=== PATIENT | female | born 1955 | race Caucasian/White ===

== ENCOUNTER 2016-06-22 06:16 | Observation (INO) | payer OTHER ==
[~2016-06-22] VITALS: Ht 149.9 cm; Wt 62.0 kg
[2016-06-22] VITALS (7 sets, daily range): BP systolic 101–121; BP diastolic 48–57; PULSE 40–64; RESP 15–20; TEMP 97.5–97.6; O2SAT 97–100
[~2016-06-22 06:16] MED LIST: CITA40 PO; HYDR50TA5 PO; LEVO200T31 PO; LEVO75TA3 PO; LORA0.5T PO; PROT40TA PO; ROPI2 PO
[2016-06-22] MEDS ORDERED: SODIUM CHLOR 0.9% 1000 ML INJ 1,000 ML IV SCH (08:24)
--- NOTE | 2016-06-22 08:29 | PD ---
HPI Chief Complaint: Abdominal Pain Time Seen by Provider: 08:16 Travel History International Travel<30 days: No Contact w/Intl Traveler<30days: No Traveled to known affect area: No History of Present Illness HPI This is a 61-year-old female who has a history gastric bypass in August of last year by Dr. Salinas who presents to the emergency department having had intermittent epigastric discomfort and nausea, culminating yesterday with severe epigastric pain, feeling the need to vomit, going to the bathroom having had an episode of loose stool and then passing out finding herself awaking in the shower. She doesn't remember exactly what happened. This is never happened to her. She says she's not really been able to eat or drink much for several months. She's been struggling with nausea ever since the gastric bypass. She's been following with GI. In January they did not endoscopy and demonstrated ulcerations. She saw Dr. Salinas earlier this week and Dr. Soham Parisi yesterday because her symptoms have been worsening. They were going to initiate her on a PPI and an antacid. PFSH Past Medical History Narrative Medical Hypothyroidism Gastric bypass in August 2015 Cancer: No Cardiovascular Problems: No Diabetes: Yes (pre) Endocrine: Yes Genitourinary: No Hepatitis: No Hiatal Hernia: Yes Immune Disorder: No Musculoskeletal: Yes (scoliosis neck area) Neurologic: No Psychiatric: Yes (anxiety) Reproductive: No Respiratory: Yes (RAD) Thyroid Disease: Yes ?: Not Past Surgical History Abdominal Surgery: Yes (lap jaqui) AICD: No Joint Replacement: No Pacemaker: No Social History Alcohol Use: No Tobacco Use: Yes Substance Use: No Allergies-Medications (Allergen,Severity, Reaction): Coded Allergies: Codeine (Unverified Allergy, Severe, Itching, 06/22/16) HIVES Reported Meds & Prescriptions Reported Meds & Active Scripts Active Reported Lorazepam 0.5 Mg Tab 0.5 Mg PO HS PRN Hctz (Hydrochlorothiazide) 50 Mg Tab 50 Mg PO DAILY Levothyroxine 75 mcg (Levothyroxine Sodium) 75 Mcg Tab 75 Mcg PO DAILY Protonix (Pantoprazole Sodium) 40 Mg Tab 40 Mg PO DAILY Levoxyl (Levothyroxine Sodium) 200 Mcg Tab 275 Mcg PO DAILY Requip (Ropinirole HCl) 2 Mg Tab 2 Mg PO Q6HR Celexa 40 Mg Tab (Citalopram Hydrobromide) 40 Mg Tab 40 Mg PO DAILY Review of Systems Except as stated in HPI: all other systems reviewed are Neg Physical Exam Narrative GENERAL:Pale SKIN: Warm and dry. HEAD: Atraumatic. Normocephalic. EYES: Pupils equal and round. No injection or drainage. ENT: Dry mucous membranes NECK: Trachea midline. CARDIOVASCULAR: Regular rate and rhythm. No murmur appreciated. RESPIRATORY: Clear to auscultation. Breath sounds equal bilaterally. GASTROINTESTINAL: Abdomen soft, tender to palpation in the epigastrium and right upper quadrant, hyperactive bowel sounds in the epigastrium, hypoactive bowel sounds in the lower abdomen. MUSCULOSKELETAL: No obvious deformities. NEUROLOGICAL: Awake and alert. No obvious cranial nerve deficits. Moving all extremities. PSYCHIATRIC: Appropriate mood and affect; insight and judgment normal. Data Data Last Documented VS Vital Signs Date Time Temp Pulse Resp B/P Pulse Ox O2 Delivery O2 Flow Rate FiO2 06/22/16 08:31 56 16 110/54 98 Room Air 06/22/16 06:18 97.6 Orders Complete Blood Count With Diff (06/22/16 08:24) Comprehensive Metabolic Panel (06/22/16 08:24) Lipase (06/22/16 08:24) Prothrombin Time / Inr (Pt) (06/22/16 08:24) Act Partial Throm Time (Ptt) (06/22/16 08:24) Urinalysis - C+S If Indicated (06/22/16 08:24) Iv Access Insert/Monitor (06/22/16 08:24) Ecg Monitoring (06/22/16 08:24) Oximetry (06/22/16 08:24) Sodium Chlor 0.9% 1000 Ml Inj (Ns 1000 M (06/22/16 08:24) Sodium Chloride 0.9% Flush (Ns Flush) (06/22/16 08:30) Electrocardiogram (06/22/16 ) Troponin I (06/22/16 08:29) Admit Order (Ed Use Only) (06/22/16 10:08) Labs Laboratory Tests Test 06/22/16 06/22/16 09:05 09:15 White Blood Count 5.6 TH/MM3 Red Blood Count 4.19 MIL/MM3 Hemoglobin 13.6 GM/DL Hematocrit 38.5 % Mean Corpuscular Volume 92.0 FL Mean Corpuscular Hemoglobin 32.4 PG Mean Corpuscular Hemoglobin 35.3 % Concent Red Cell Distribution Width 12.8 % Platelet Count 183 TH/MM3 Mean Platelet Volume 8.7 FL Neutrophils (%) (Auto) 58.9 % Lymphocytes (%) (Auto) 32.2 % Monocytes (%) (Auto) 5.8 % Eosinophils (%) (Auto) 2.4 % Basophils (%) (Auto) 0.7 % Neutrophils # (Auto) 3.3 TH/MM3 Lymphocytes # (Auto) 1.8 TH/MM3 Monocytes # (Auto) 0.3 TH/MM3 Eosinophils # (Auto) 0.1 TH/MM3 Basophils # (Auto) 0.0 TH/MM3 CBC Comment AUTO DIFF Prothrombin Time 10.9 SEC Prothromb Time International 1.0 RATIO Ratio Activated Partial 24.6 SEC Thromboplast Time Sodium Level 142 MEQ/L Potassium Level 4.0 MEQ/L Chloride Level 107 MEQ/L Carbon Dioxide Level 29.1 MEQ/L Anion Gap 6 MEQ/L Blood Urea Nitrogen 15 MG/DL Creatinine 0.73 MG/DL Estimat Glomerular Filtration 81 ML/MIN Rate Random Glucose 90 MG/DL Calcium Level 8.6 MG/DL Total Bilirubin 0.2 MG/DL Aspartate Amino Transf 36 U/L (AST/SGOT) Alanine Aminotransferase 34 U/L (ALT/SGPT) Alkaline Phosphatase 75 U/L Troponin I LESS THAN 0.02 NG/ML Total Protein 6.4 GM/DL Albumin 3.3 GM/DL Lipase 516 U/L Urine Color YELLOW Urine Turbidity CLEAR Urine pH 6.5 Urine Specific [place] 1.022 Urine Protein TRACE mg/dL Urine Glucose (UA) NEG mg/dL Urine Ketones TRACE mg/dL Urine Occult Blood NEG Urine Nitrite NEG Urine Bilirubin NEG Urine Urobilinogen 4.0 MG/DL Urine Leukocyte Esterase SMALL Urine RBC 1 /hpf Urine WBC 4 /hpf Urine Squamous Epithelial 5 /hpf Cells Urine Mucus FEW /lpf Microscopic Urinalysis Comment CULT NOT INDICATED MDM Medical Decision Making Medical Screen Exam Complete: Yes Emergency Medical Condition: Yes Interpretation(s) Afebrile, no tachycardia, normotensive No leukocytosis Electrolytes are reassuring Lipase is 516 Albumin is slightly low Troponin is normal Urinalysis is negative for infection EKG demonstrated sinus bradycardia with no ST changes Differential Diagnosis Arrhythmia, electrolyte abnormality, dehydration, gastric ulcer, obstruction Narrative Course This is a 61-year-old female who presents to the emergency department with a history gastric bypass with increasing epigastric discomfort over the past week with an episode of syncope last evening in the setting of pain nausea and loose stools. She was placed on a monitor and an IV was established. Labs are obtained which were notable for a mildly elevated lipase and a normal troponin. EKG is bradycardic but sinus rhythm. Patient was given a liter of IV hydration. I spoke to Dr. Salinas who agreed with keeping the patient in observation and consulting GI for likely endoscopy. Patient will be placed in observation under Dr. Gray service. Physician Communication Physician Communication Discussed with Dr. Gray and Dr. Salinas Diagnosis Primary Impression: Syncope Qualified Code: R55 - Syncope, unspecified syncope type Admitting Information Admitting Physician Requests: Observation Shahnaz Calderon MD Jun 22, 2016 08:29
[2016-06-22] MEDS ORDERED: SODIUM CHLORIDE 0.9% FLUSH 5 ML FLUSH IVF PRN (08:30)
[2016-06-22 09:34] LABS: APTT (PATIENT) 24.6 SEC (24.3-30.1); PROTHROMBIN TIME - PATIENT 10.9 SEC (9.8-11.6)
[2016-06-22 09:41] LABS: AUTOMATED NEUTROPHIL # 3.3 TH/MM3 (1.8-7.7); BASOPHIL % 0.7 % (0.0-2.0); EOSINOPHIL # 0.1 TH/MM3 (0-0.4); EOSINOPHIL % 2.4 % (0.0-4.0); HEMATOCRIT 38.5 % (35.0-46.0); LYMPH % 32.2 % (9.0-44.0); LYMPHOCYTE # 1.8 TH/MM3 (1.0-4.8); MEAN CORPUSCULAR HEMOGLOBIN 32.4 PG (27.0-34.0); MEAN CORPUSCULAR HGB CONC 35.3 % (32.0-36.0); MONO % 5.8 % (0.0-8.0); NEUT % 58.9 % (16.0-70.0); PLATELET COUNT 183 TH/MM3 (150-450); RED BLOOD COUNT 4.19 MIL/MM3 (4.00-5.30); RED CELL DISTRIBUTION WIDTH 12.8 % (11.6-17.2); WHITE BLOOD COUNT 5.6 TH/MM3 (4.0-11.0)
[2016-06-22 09:44] LABS: HEMO FLAGS AUTO DIFF
[2016-06-22 09:45] LABS: ALKALINE PHOSPHATASE 75 U/L (45-117); TOTAL BILIRUBIN ADULT 0.2 MG/DL (0.2-1.0)
[2016-06-22 09:58] LABS: BLOOD, URINE NEG (NEG); COMMENT (UR) CULT NOT INDICATED; CULTURE IF INDICATED CULT NOT INDICATED; GLUCOSE,URINE NEG (NEG); KETONE, URINE TRACE mg/dL (NEG); MUCUS URINE FEW /lpf (OCC); NITRITE,URINE NEG (NEG); PH, URINE 6.5 (5.0-8.5); SQUAMOUS EPITHELIAL CELL URINE 5 /hpf (0-5); URINE COLOR YELLOW (YELLW/STRAW)
[2016-06-22 10:00] LABS: ALT (GPT) 34 U/L (10-53); ANION GAP 6 MEQ/L (5-15); AST (GOT) 36 U/L (15-37); BICARBONATE 29.1 MEQ/L (21.0-32.0); BLOOD UREA NITROGEN 15 MG/DL (7-18); CHLORIDE 107 MEQ/L (98-107); GLOMERULAR FILTRATION RATE 81 ML/MIN (>89); SODIUM (NA) 142 MEQ/L (136-145)
[2016-06-22 10:26] LABS: PLATELET ESTIMATE SMEAR NORMAL (NORMAL); PLATELET MORPHOLOGY NORMAL (NORMAL); SCAN/DIFF AUTO DIFF CONFIRMED
--- NOTE | 2016-06-22 11:03 | PD.CONS ---
HPI History of Present Illness This is a 61 year old with a hx of Gastric Bypass with Dr. Salinas in August of 2015. Since that time, she has had issues with intermittent nausea. She was evaluated with EGD (01/13/16)---> acute gastritis was found at the gastroduodenal anastomosis; biopsy was performed, retroflex views revealed no abnormalities. Gastrosmall intestinal mucosa with mild chronic inflammation/ gastroenteritis, focal lymphangiectasia and reactive epithelial changes. No definite evidence of dysplasia. H. pylori organisms are not identified by immunostain. At that time, she was given Reglan, Carafate, and Protonix. She reports that the Reglan aggravated her restless leg syndrome and therefore she could not take that. She has continued to have intermittent nausea and epigastric discomfort, but she states that this has progressively gotten worse over the past week- with epigastric pressure, frequent belching, and nausea. She states that she cannot even take a sip of water without having nausea. She saw Dr. Soto in the office yesterday and she was scheduled for an EGD. However, last night, she woke up with severe nausea, severe sharp/cramping pain in her epigastric area, and the intense need to move her bowels. She went to the bathroom and moved her bowels (she did not notice any blood), but apparently had a syncopal episode. She is taking ranitidine at home. She was started on a PPI yesterday at the doctor's office, but she has not had a chance to pick this up yet. She has lost 120 lbs since her surgery, but states that this is currently stable. (Emelina Mcgowan) PFSH Past Medical History Hypothyroidism GERD Diverticulosis Restless leg syndrome. Obstructive sleep apnea Vitamin D deficiency Past Surgical History Gastric bypass Cholecystectomy Right knee reconstruction Left index finger tumor removed (Emelina Mcgowan) Coded Allergies: Codeine (Unverified Allergy, Severe, Itching, 06/22/16) HIVES Medications Allergies Coded Allergies Type Severity Reaction Last Updated Verified Codeine Allergy Severe Itching 06/22/16 No Active Scripts Medications Dose Route/Sig Days Date Category Lorazepam 0.5 Mg Tab 0.5 Mg PO HS PRN 08/24/15 Reported Hctz (Hydrochlorothiazide) 50 Mg Tab 50 Mg PO DAILY 08/24/15 Reported Levothyroxine 75 mcg (Levothyroxine Sodium) 75 Mcg Tab 75 Mcg PO DAILY 08/24/15 Reported Protonix (Pantoprazole Sodium) 40 Mg Tab 40 Mg PO DAILY 08/24/15 Reported Levoxyl (Levothyroxine Sodium) 200 Mcg Tab 275 Mcg PO DAILY 05/09/12 Reported Requip (Ropinirole HCl) 2 Mg Tab 2 Mg PO Q6HR 05/09/12 Reported Celexa 40 Mg Tab (Citalopram Hydrobromide) 40 Mg Tab 40 Mg PO DAILY 05/09/12 Reported Family History Maternal grandfather had pancreatic cancer. Paternal grandmother had a brain aneurysm Social History Smokes 1 PPD ~5 years after quitting 20 years No regular ETOH use. (Emelina Mcgowan) Review of Systems Constitutional: COMPLAINS OF: Fatigue, Weight loss, Change in appetite Respiratory: DENIES: Cough, Shortness of breath Cardiovascular: DENIES: Chest pain Gastrointestinal: COMPLAINS OF: Abdominal pain, Diarrhea, Nausea, Vomiting, Heartburn, DENIES: Black stools, Bloody stools, Constipation, Hematemesis Musculoskeletal: COMPLAINS OF: Joint pain Integumentary: DENIES: Abnormal pigmentation Hematologic/lymphatic: DENIES: Bruising Neurologic: DENIES: Headache Psychiatric: DENIES: Confusion (Emelina Mcgowan) GI Exam Vitals I&O Vital Signs Date Time Temp Pulse Resp B/P Pulse Ox O2 Delivery O2 Flow Rate FiO2 06/22/16 10:47 40 18 115/57 99 Room Air 06/22/16 09:00 42 18 103/53 99 Room Air 06/22/16 08:31 56 16 110/54 98 Room Air 06/22/16 06:18 97.6 64 15 121/56 100 Room Air Laboratory Test 06/22/16 06/22/16 09:05 09:15 White Blood Count 5.6 TH/MM3 Red Blood Count 4.19 MIL/MM3 Hemoglobin 13.6 GM/DL Hematocrit 38.5 % Mean Corpuscular Volume 92.0 FL Mean Corpuscular Hemoglobin 32.4 PG Mean Corpuscular Hemoglobin 35.3 % Concent Red Cell Distribution Width 12.8 % Platelet Count 183 TH/MM3 Mean Platelet Volume 8.7 FL Neutrophils (%) (Auto) 58.9 % Lymphocytes (%) (Auto) 32.2 % Monocytes (%) (Auto) 5.8 % Eosinophils (%) (Auto) 2.4 % Basophils (%) (Auto) 0.7 % Neutrophils # (Auto) 3.3 TH/MM3 Lymphocytes # (Auto) 1.8 TH/MM3 Monocytes # (Auto) 0.3 TH/MM3 Eosinophils # (Auto) 0.1 TH/MM3 Basophils # (Auto) 0.0 TH/MM3 CBC Comment AUTO DIFF Differential Comment AUTO DIFF CONFIRMED Platelet Estimate NORMAL Platelet Morphology Comment NORMAL Prothrombin Time 10.9 SEC Prothromb Time International 1.0 RATIO Ratio Activated Partial 24.6 SEC Thromboplast Time Sodium Level 142 MEQ/L Potassium Level 4.0 MEQ/L Chloride Level 107 MEQ/L Carbon Dioxide Level 29.1 MEQ/L Anion Gap 6 MEQ/L Blood Urea Nitrogen 15 MG/DL Creatinine 0.73 MG/DL Estimat Glomerular Filtration 81 ML/MIN Rate Random Glucose 90 MG/DL Calcium Level 8.6 MG/DL Total Bilirubin 0.2 MG/DL Aspartate Amino Transf 36 U/L (AST/SGOT) Alanine Aminotransferase 34 U/L (ALT/SGPT) Alkaline Phosphatase 75 U/L Troponin I LESS THAN 0.02 NG/ML Total Protein 6.4 GM/DL Albumin 3.3 GM/DL Lipase 516 U/L Urine Color YELLOW Urine Turbidity CLEAR Urine pH 6.5 Urine Specific [place] 1.022 Urine Protein TRACE mg/dL Urine Glucose (UA) NEG mg/dL Urine Ketones TRACE mg/dL Urine Occult Blood NEG Urine Nitrite NEG Urine Bilirubin NEG Urine Urobilinogen 4.0 MG/DL Urine Leukocyte Esterase SMALL Urine RBC 1 /hpf Urine WBC 4 /hpf Urine Squamous Epithelial 5 /hpf Cells Urine Mucus FEW /lpf Microscopic Urinalysis Comment CULT NOT INDICATED Physical Examination HEENT: Normocephalic; atraumatic; no jaundice. CHEST: CTA CARDIAC: SB 48 ABDOMEN: Soft, nondistended, nontender; no hepatosplenomegaly; bowel sounds are present in all four quadrants. EXTREMITIES: No clubbing, cyanosis, or edema. SKIN: Normal; no rash; no jaundice. RETREAD OPERATOR: No focal deficits; alert and oriented times three. (Emelina Mcgowan) Assessment and Plan Plan ASSESSMENT: - Nausea, vomiting, abdomnal pain inability to tolerate po. Pt has had nausea since her gastric bypass in August of 2015. S/P EGD (01/13/16)---> acute gastritis was found at the gastroduodenal anastomosis; biopsy was performed, retroflex views revealed no abnormalities. Gastrosmall intestinal mucosa with mild chronic inflammation/gastroenteritis, focal lymphangiectasia and reactive epithelial changes. No definite evidence of dysplasia. H. pylori organisms are not identified by immunostain. She states that she has continued to have symptoms with worsening of these symptoms over the past week. She was seen in the office yesterday and scheduled for EGD and started on Protonix/ Carafate again (more recently she was taking zantac), but she did not have a chance to get these filled and had severe epigastric discomfort with a syncopal episode last night, which brought her to the ER. NPO. Plan for EGD today. - GERD, Frequent belching. PPI. - SB, denies any history of this. - Hypothyroidism, RLS per primary PLAN: - Plan for EGD - Obtain consents - NPO - Protonix 40mg IV BID - Supportive care - Further recommendations to follow based on results of above - Pt seen and examined by Dr. Moreau and myself and this note is written on his behalf (Emelina Mcgowan) Physician Comments Patient was seen and examined Agree with above Continue with current supportive care Monitor labs EGD next (Librado Moreau MD) Emelina Mcgowan Jun 22, 2016 11:03 Librado Moreau MD Jun 22, 2016 13:32
[2016-06-22] MEDS: PANTOPRAZOLE SODIUM 40 MG VIAL IV PUSH SCH (12:00)
--- NOTE | 2016-06-22 13:48 | PD.PROCEDR ---
GI Procedure REFERRING PHYSICIAN Dr. Salinas PROCEDURE PERFORMED EGD with cautery INDICATION FOR PROCEDURE Abdominal pain nausea vomiting history of gastric bypass PROCEDURE: The procedure, risks and benefits were discussed with Ms. Hayes and informed consent was obtained. Anesthesia sedated her with Diprivan. She was placed in the left lateral decubitus position. EGD: The Pentax videoscope was introduced through the oropharynx and advanced to the second portion of the duodenum under direct visualization. Retroflexion was performed in the stomach. 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
[2016-06-22] MEDS ORDERED: MIDAZOLAM HCL 2 MG/2 ML VIAL ONE (14:11)
--- NOTE | 2016-06-22 15:04 | HHI.HP ---
HPI Service [facility] Hospitalists Primary Care Physician Dr. María Elena Mckeon Admission Diagnosis syncope Chief Complaint: Nausea, belching Travel History International Travel<30 Days: No Contact w/Intl Traveler <30 Da: No Traveled to Known Affected Are: No History of Present Illness Ms. Hayes is a 61 y/o female who previously underwent gastric bypass with Dr. Salinas in August of 2015. Since that time, she has had issues with intermittent nausea. She was evaluated with EGD (01/13/16) which noted acute gastritis was found at the gastroduodenal anastomosis. At that time, she was given Reglan, Carafate, and Protonix. She reports that the Reglan aggravated her restless leg syndrome and therefore she could not take that. She has continued to have intermittent nausea and epigastric discomfort, but this has progressively gotten worse over the past week. Pt reported worsening epigastric pressure, frequent belching, and nausea. She states that she cannot even take a sip of water without having nausea. She saw Dr. Soto in the office yesterday and she was scheduled for an EGD. However, last night, she woke up with severe nausea, severe sharp/cramping pain in her epigastric area, and felt that she needed to urgently move her bowels. She went to the bathroom and had a nonbloody BM but apparently had a syncopal episode and woke up finding herself awaking in the shower. She is taking ranitidine at home. She was started on a PPI yesterday, but she has not had a chance to pick this up yet. She has lost 120 lbs since her surgery, but states that this is currently stable. She reports a lot of belching every day all throughout the day. Pt moves her bowels typically every 2-3 days and is normal, pastey brown stools. Review of Systems Constitutional: DENIES: Fever, Chills, Dizziness Eyes: DENIES: Vision loss Ears, nose, mouth, throat: DENIES: Hearing loss Respiratory: DENIES: Cough, Shortness of breath Cardiovascular: DENIES: Chest pain, Palpitations Gastrointestinal: COMPLAINS OF: Abdominal pain, Nausea Past Family Social History Past Medical History Morbid obesity s/p gastric bypass GERD Asthma Hypothyroidism Hepatic steatosis Depression Claustrophobia Vitamin D deficiency Vertigo Tobacco use Diverticulosis Restless leg syndrome and augmentation from Requip Obstructive sleep apnea Past Surgical History Gastric bypass 08/2015 Cholecystectomy Right knee reconstruction Left index finger tumor removed EGD 01/13/[address] Soto --> gastritis found at the gastro-duodenal anastomosis. Reported Medications -Alprazolam 0.5 Mg PO HS PRN -Levothyroxine 275 mcg PO DAILY -Protonix 40 Mg PO DAILY -Requip 2 Mg PO Q6HR -Celexa 40 Mg PO DAILY ?Hctz 50 Mg PO DAILY Allergies: Coded Allergies: Codeine (Unverified Allergy, Severe, Itching, 06/22/16) HIVES Family History Maternal Grandfather with hx of pancreatic cancer Father with COPD Paternal grandmother had a brain aneurysm Social History Smokes 1 PPD ~5 years after quitting 20 years No regular ETOH use. Physical Exam Vital Signs Vital Signs Date Time Temp Pulse Resp B/P Pulse Ox O2 Delivery O2 Flow Rate FiO2 06/22/16 14:00 64 16 104/51 97 06/22/16 13:50 62 16 101/43 97 06/22/16 13:45 98.0 61 16 103/60 97 06/22/16 10:47 40 18 115/57 99 Room Air 06/22/16 09:00 42 18 103/53 99 Room Air 06/22/16 08:31 56 16 110/54 98 Room Air 06/22/16 06:18 97.6 64 15 121/56 100 Room Air Physical Exam GENERAL: This is a well-nourished, well-developed patient, in no apparent distress. HEENT: Atraumatic. Normocephalic. No temporal or scalp tenderness. No scleral icterus. Airway patent. NECK: Trachea midline, supple, nontender. CARDIO: Regular. RESP: CTA bilaterally. No wheezes, rales, or rhonchi. ABD: +BS, soft, non-tender, nondistended. EXT: Extremities without clubbing, cyanosis, or edema. NEURO: Awake and alert. Motor and sensory grossly within normal limits. Normal speech. Laboratory Laboratory Tests Test 06/22/16 06/22/16 09:05 09:15 White Blood Count 5.6 Red Blood Count 4.19 Hemoglobin 13.6 Hematocrit 38.5 Mean Corpuscular Volume 92.0 Mean Corpuscular Hemoglobin 32.4 Mean Corpuscular Hemoglobin 35.3 Concent Red Cell Distribution Width 12.8 Platelet Count 183 Mean Platelet Volume 8.7 Neutrophils (%) (Auto) 58.9 Lymphocytes (%) (Auto) 32.2 Monocytes (%) (Auto) 5.8 Eosinophils (%) (Auto) 2.4 Basophils (%) (Auto) 0.7 Neutrophils # (Auto) 3.3 Lymphocytes # (Auto) 1.8 Monocytes # (Auto) 0.3 Eosinophils # (Auto) 0.1 Basophils # (Auto) 0.0 CBC Comment AUTO DIFF Differential Comment AUTO DIFF CONFIRMED Platelet Estimate NORMAL Platelet Morphology Comment NORMAL Prothrombin Time 10.9 Prothromb Time International 1.0 Ratio Activated Partial 24.6 Thromboplast Time Sodium Level 142 Potassium Level 4.0 Chloride Level 107 Carbon Dioxide Level 29.1 Anion Gap 6 Blood Urea Nitrogen 15 Creatinine 0.73 Estimat Glomerular Filtration 81 Rate Random Glucose 90 Calcium Level 8.6 Total Bilirubin 0.2 Aspartate Amino Transf 36 (AST/SGOT) Alanine Aminotransferase 34 (ALT/SGPT) Alkaline Phosphatase 75 Troponin I LESS THAN 0.02 Total Protein 6.4 Albumin 3.3 Lipase 516 Urine Color YELLOW Urine Turbidity CLEAR Urine pH 6.5 Urine Specific [place] 1.022 Urine Protein TRACE Urine Glucose (UA) NEG Urine Ketones TRACE Urine Occult Blood NEG Urine Nitrite NEG Urine Bilirubin NEG Urine Urobilinogen 4.0 Urine Leukocyte Esterase SMALL Urine RBC 1 Urine WBC 4 Urine Squamous Epithelial 5 Cells Urine Mucus FEW Microscopic Urinalysis Comment CULT NOT INDICATED Result Diagram: 06/22/1690406/22/16904 Septic Shock Reassessment Heart: Regular rate and rhythm Lungs: Clear Skin: Warm Peripheral Pulses: Bounding Right Radial Bounding Left Radial Bounding Right Popliteal Bounding Left Popliteal Bounding Right Dorsalis Pedis Bounding Left Dorsalis Pedis Bounding Right Posterior Tibial Bounding Left Posterior Tibial Capillary Refill: <2 seconds Assessment and Plan Problem List: (1) Syncope Status: Acute Plan: - The pt has had issues with nausea, belching and abd discomfort since her gastric bypass in 08/2015 - She had an outpt EGD (01/13/16) --> acute gastritis was found at the gastroduodenal anastomosis. At that time, she was given Reglan, Carafate, and Protonix. Pt stopped the Reglan because it aggravated her restless leg syndrome - Her abd pain, nausea and belching has been worsening for the last week. - Pt had an episode of syncope today after she woke up with increased nausea, abd cramping and had a loose BM. This was likely a vasovagal syncope. 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 (3) Belching Status: Chronic Plan: - See above. (4) GERD (gastroesophageal reflux disease) Status: Chronic Plan: - PPI (5) RLS (restless legs syndrome) Status: Chronic Plan: - Resume home meds Assessment and Plan Patient examined. Assessment and plan formulated with Linda Canseco PA-C. I agree with the above. gastric bypass. persistent nausea and gas. no chronic abdomen pain. egd showed avm cauterized. trial of simethicone for gas...if no better then ?trial of EES. will discuss with GI vasovagal syncope. Problem Qualifiers (1) Syncope: Qualified Code: R55 - Syncope, unspecified syncope type Linda Canseco Jun 22, 2016 15:04 Trell Gray MD Jun 22, 2016 16:46
[2016-06-22] MEDS ORDERED: ONDANSETRON HCL 4 MG/2 ML VIAL IV PRN (15:30)
[2016-06-22] MEDS ORDERED: ACETAMINOPHEN 325 MG TAB PO PRN (15:30)
[2016-06-22] MEDS ORDERED: SIMETHICONE 125 MG CHEWABLE TAB PO SCH ×2 (15:30)
[2016-06-22] MEDS: SIMETHICONE 125 MG CHEWABLE TAB PO SCH ×3 (16:00→21:59)
[2016-06-22] MEDS ORDERED: CHOL400D2 PO (16:28)
[2016-06-22] MEDS ORDERED: MULT1TAB (16:28)
[2016-06-22] MEDS ORDERED: ZANT150T2 PO (16:28)
[2016-06-22] MEDS ORDERED: ROPI2 PO (16:30)
[2016-06-22] MEDS ORDERED: LORazepam 0.5 MG TAB PO PRN (16:30)
[2016-06-22] MEDS ORDERED: LORA-373 PO (16:31)
[2016-06-22] MEDS ORDERED: PROT40TA PO (16:31)
[2016-06-22] MEDS ORDERED: CELE40TA PO (16:32)
[2016-06-22] MEDS ORDERED: LEVO75TA3 PO (16:32)
[2016-06-22] MEDS ORDERED: LEVO200T4 PO (16:32)
[2016-06-22] MEDS ORDERED: PROPOFOL 200 MG/20 ML AMP IV ONE (16:41)
--- NOTE | 2016-06-22 19:29 | EKG ---
Date Performed: 06/22/2016 Time Performed: 09:59:00 PTAGE: 61 years EKG: SINUS BRADYCARDIA BORDERLINE ECG NO PREVIOUS TRACING DOCTOR: Blake Dyer Interpretating Date/Time 06/22/2016 19:27:34
[2016-06-23] VITALS: BP 98/48; PULSE 58; RESP 18; TEMP 97.3; O2SAT 98
[2016-06-23] MEDS: PANTOPRAZOLE SODIUM 40 MG VIAL IV PUSH SCH ×2 (01:00→11:30)
[2016-06-23 03:00] VITALS: BP 105/45; PULSE 61; RESP 20; TEMP 96.5; O2SAT 98
[2016-06-23 05:12] LABS: MEAN CELL VOLUME 90.4 FL (80.0-100.0); MEAN CORPUSCULAR HEMOGLOBIN 30.7 PG (27.0-34.0); PLATELET COUNT 182 TH/MM3 (150-450); RED BLOOD COUNT 3.99 MIL/MM3 (4.00-5.30); RED CELL DISTRIBUTION WIDTH 12.8 % (11.6-17.2); REVIEW FLAG FINAL; WHITE BLOOD COUNT 4.5 TH/MM3 (4.0-11.0)
[2016-06-23] MEDS ORDERED: LEVOTHYROXINE SODIUM 200 MCG TAB PO SCH (06:00)
[2016-06-23] MEDS ORDERED: LEVOTHYROXINE SODIUM 75 MCG TAB PO SCH (06:00)
[2016-06-23] MEDS: SIMETHICONE 125 MG CHEWABLE TAB PO SCH ×2 (06:11→11:30)
[2016-06-23 07:51] VITALS: BP 94/44; PULSE 54; RESP 16; TEMP 98; O2SAT 97
[2016-06-23] MEDS ORDERED: CITALOPRAM HYDROBROMIDE 40 MG TAB PO SCH (09:00)
--- NOTE | 2016-06-23 09:23 | HHI.PR ---
Subjective Remarks Pt feeling better today. Less belching Pt able to eat dinner last night and breakfast this morning No nausea Objective Vitals Vital Signs Date Time Temp Pulse Resp B/P Pulse Ox O2 Delivery O2 Flow Rate FiO2 06/23/16 07:51 98.0 54 16 94/44 97 06/23/16 03:00 96.5 61 20 105/45 98 06/23/16 00:00 97.3 58 18 98/48 98 06/22/16 21:05 42 06/22/16 20:20 97.6 57 20 109/48 97 06/22/16 15:52 97.5 48 18 101/49 97 06/22/16 14:00 64 16 104/51 97 06/22/16 13:50 62 16 101/43 97 06/22/16 13:45 98.0 61 16 103/60 97 06/22/16 10:47 40 18 115/57 99 Room Air 06/22/16 06/22/16 06/23/16 15:00 23:00 07:00 Intake Total 400 ml Balance 400 ml Intake Other 400 ml Result Diagram: 06/23/16 0456 06/22/16 0905 Other Results Laboratory Tests Test 06/22/16 06/22/16 06/23/16 09:05 09:15 04:56 White Blood Count 5.6 TH/MM3 4.5 TH/MM3 Red Blood Count 4.19 MIL/MM3 3.99 MIL/MM3 Hemoglobin 13.6 GM/DL 12.3 GM/DL Hematocrit 38.5 % 36.0 % Mean Corpuscular Volume 92.0 FL 90.4 FL Mean Corpuscular Hemoglobin 32.4 PG 30.7 PG Mean Corpuscular Hemoglobin 35.3 % 34.0 % Concent Red Cell Distribution Width 12.8 % 12.8 % Platelet Count 183 TH/MM3 182 TH/MM3 Mean Platelet Volume 8.7 FL 8.0 FL Neutrophils (%) (Auto) 58.9 % Lymphocytes (%) (Auto) 32.2 % Monocytes (%) (Auto) 5.8 % Eosinophils (%) (Auto) 2.4 % Basophils (%) (Auto) 0.7 % Neutrophils # (Auto) 3.3 TH/MM3 Lymphocytes # (Auto) 1.8 TH/MM3 Monocytes # (Auto) 0.3 TH/MM3 Eosinophils # (Auto) 0.1 TH/MM3 Basophils # (Auto) 0.0 TH/MM3 CBC Comment AUTO DIFF Differential Comment AUTO DIFF CONFIRMED Platelet Estimate NORMAL Platelet Morphology Comment NORMAL Prothrombin Time 10.9 SEC Prothromb Time International 1.0 RATIO Ratio Activated Partial 24.6 SEC Thromboplast Time Sodium Level 142 MEQ/L Potassium Level 4.0 MEQ/L Chloride Level 107 MEQ/L Carbon Dioxide Level 29.1 MEQ/L Anion Gap 6 MEQ/L Blood Urea Nitrogen 15 MG/DL Creatinine 0.73 MG/DL Estimat Glomerular Filtration 81 ML/MIN Rate Random Glucose 90 MG/DL Calcium Level 8.6 MG/DL Total Bilirubin 0.2 MG/DL Aspartate Amino Transf 36 U/L (AST/SGOT) Alanine Aminotransferase 34 U/L (ALT/SGPT) Alkaline Phosphatase 75 U/L Troponin I LESS THAN 0.02 NG/ML Total Protein 6.4 GM/DL Albumin 3.3 GM/DL Lipase 516 U/L Urine Color YELLOW Urine Turbidity CLEAR Urine pH 6.5 Urine Specific Rule 1.022 Urine Protein TRACE mg/dL Urine Glucose (UA) NEG mg/dL Urine Ketones TRACE mg/dL Urine Occult Blood NEG Urine Nitrite NEG Urine Bilirubin NEG Urine Urobilinogen 4.0 MG/DL Urine Leukocyte Esterase SMALL Urine RBC 1 /hpf Urine WBC 4 /hpf Urine Squamous Epithelial 5 /hpf Cells Urine Mucus FEW /lpf Microscopic Urinalysis Comment CULT NOT INDICATED Objective Remarks General: NAD, AAOx3 Chest: CTA bilaterally Cardiac: Regular, blaze Abd: +BS, soft ND/NT Ext: No edema A/P Problem List: (1) Syncope Status: Acute Plan: - The pt has had issues with nausea, belching and abd discomfort since her gastric bypass in 08/2015 - She had an outpt EGD (01/13/16) --> acute gastritis was found at the gastroduodenal anastomosis. At that time, she was given Reglan, Carafate, and Protonix. Pt stopped the Reglan because it aggravated her restless leg syndrome - Her abd pain, nausea and belching has been worsening for the last week. - Pt had an episode of syncope yesterday after she woke up with increased nausea , abd cramping and had a loose BM. This was likely a vasovagal syncope. 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 Pt tolerating oral intake. - Cont. Protonix 40mg Q12H - Cont. Simethicone 125mg ACHS - Encourage oral intake - Pt has been having some hypotension more today than previously. Pt has a low./ normal BP typically and she has not been symptomatic from hypotension with walking around. We offered the pt some IVF prior to discharge but pt refused. - Pt planned for discharge later this afternoon. - She will followup with GI in 2 weeks - Pt will followup with her PCP in 1 week (2) Nausea Status: Chronic Plan: - See above. (3) Belching Status: Chronic Plan: - See above. (4) GERD (gastroesophageal reflux disease) Status: Chronic Plan: - PPI (5) RLS (restless legs syndrome) Status: Chronic Plan: - Resume home meds Assessment and Plan Patient examined. Assessment and plan formulated with Linda Canseco PA-C. I agree with the above. improved with gas x. cont ppi and f/u GI. Problem Qualifiers (1) Syncope: Qualified Code: R55 - Syncope, unspecified syncope type Linda Canseco Jun 23, 2016 09:23 Trell Gray MD Jun 23, 2016 13:13
[2016-06-23] MEDS ORDERED: PROT40TA PO (09:34)
[2016-06-23] MEDS ORDERED: SIME1CHW11 PO (09:34)
--- NOTE | 2016-06-23 09:36 | HHI.DCPOC ---
Discharge Care Plan Diagnosis: (1) Syncope (2) Nausea (3) Belching (4) RLS (restless legs syndrome) (5) GERD (gastroesophageal reflux disease) Goals to Promote Your Health * To prevent worsening of your condition and complications * To maintain your health at the optimal level Directions to Meet Your Goals Take your medications as prescribed Follow your dietary instruction Follow activity as directed Keep your appointments as scheduled Take your immunizations and boosters as scheduled If your symptoms worsen call your PCP, if no PCP go to Urgent Care Center or Emergency Room Smoking is Dangerous to Your Health. Avoid second hand smoke Call the 24-hour hour crisis hotline for domestic abuse at Linda Canseco Jun 23, 2016 09:36
[2016-06-23 11:48] VITALS: BP 90/43; PULSE 57; RESP 18; TEMP 98.2; O2SAT 97
[2016-06-23 12:02] VITALS: PULSE 55
== END 2016-06-23 15:33 | disposition home or self-care (01) ==
LOC: NEPC 06:16 → NEDA 10:10 → NEPFCDU 14:22
PROVIDERS: ADMIT Hospitalist; ATTEND Hospitalist
DX: R55 Syncope and collapse (principal); K31.811 Angiodysplasia of stomach and duodenum with bleeding; R11.2 Nausea with vomiting, unspecified; R74.8 Abnormal levels of other serum enzymes; E03.9 Hypothyroidism, unspecified; F40.240 Claustrophobia; G25.81 Restless legs syndrome; K21.9 Gastro-esophageal reflux disease without esophagitis; J45.909 Unspecified asthma, uncomplicated; G47.33 Obstructive sleep apnea (adult) (pediatric); K76.0 Fatty (change of) liver, not elsewhere classified; M41.9 Scoliosis, unspecified; F17.210 Nicotine dependence, cigarettes, uncomplicated; Z98.84 Bariatric surgery status
CPT/HCPCS: 00740; 43255; 80053; 81001; 83690; 84484; 85025; 85027; 85610; 85730; 93005; 97163; 99285; C9113; G0378; G8987; J2250; J7030